=== PATIENT | female | born 1955 | race Caucasian/White ===

== ENCOUNTER 2022-07-24 10:19 | Emergency (ER) | payer MEDICARE ==
[~2022-07-24] VITALS: Ht 162.6 cm; Wt 70.0 kg
[2022-07-24] MEDS ORDERED: POTASSIUM CHLO20 ME2 PO (11:09)
[2022-07-24] MEDS ORDERED: CANDESARTAN CIL32 MG (11:10)
[2022-07-24] MEDS ORDERED: LOVASTATIN40 M1 PO (11:10)
[2022-07-24] MEDS ORDERED: AMLODIPINE BESY10 MG PO (11:11)
[2022-07-24] MEDS ORDERED: HYDROCHLOROT25 MG PO (11:11)
[2022-07-24] MEDS ORDERED: TRAMADOL HYDROC50 M1 PO (14:11)
[2022-07-24 14:16] VITALS: BP 127/56
== END 2022-07-24 14:24 | disposition home or self-care (01) ==
LOC: ED 10:19
DX: S42.291A Other displaced fracture of upper end of right humerus, initial encounter for closed fracture (principal); I10 Essential (primary) hypertension; W18.39XA Other fall on same level, initial encounter; Y92.009 Unspecified place in unspecified non-institutional (private) residence as the place of occurrence of the external cause